=== PATIENT | female | born 1960 | race Caucasian/White ===

== ENCOUNTER 2025-05-30 13:03 | Emergency (ER) | payer MEDICARE ==
[2025-05-30 13:41] LABS: #Basophils 0.04 10x3/uL (0.0-0.2); #Eosinophils 0.10 10x3/uL (0.0-0.5); #Monocytes 0.35 10x3/uL (0.0-1.1); #Neutrophils 2.84 10x3/uL (1.5-8.4); %Basophils 0.8 % (0.0-2.0); %Eosinophils 1.9 % (0.0-6.0); %Lymphocytes 36.6 % (18.0-47.0); %Monocytes 6.6 % (0.0-10.0); %Neutrophils 53.9 % (40.0-75.0); Hematocrit 39.9 % (34.9-44.5); Hemoglobin 13.1 g/dL (12.0-15.5); Mean Corpuscular Hemoglobin 28.5 pg (27.0-33.0); Mean Corpuscular Volume 86.9 fL (81.6-98.3); Platelet Count 244 10x3/uL (150-450); Red Blood Cell (RBC) Count 4.59 10x6/uL (3.90-5.03); White Blood Cell (WBC) Count 5.27 10x3/uL (3.5-10.5)
[2025-05-30 13:54] LABS: ALT (SGPT) Less than 7 U/L (Less than 34); AST (SGOT) 14 U/L (11-34); Albumin 3.8 g/dL (3.1-4.5); Alkaline Phosphatase 65 U/L (40-110); Anion Gap 11 mmol/L (10-20); BUN (Urea Nitrogen) 12 mg/dL (9.8-20.1); Bilirubin, Total 0.4 mg/dL (0.3-1.2); Calc. Creatinine Clearance 0 mL/min (70-130); Calcium 9.3 mg/dL (7.8-10.44); Carbon Dioxide 29 mmol/L (23-31); Chloride 106 mmol/L (98-107); Globulin 3.1 g/dL (2.4-3.5); Glucose 95 mg/dL (80-115); Potassium 4.3 mmol/L (3.5-5.1); Sodium 142 mmol/L (136-145)
[2025-05-30] MEDS ORDERED: Metoclopramide HCl 10 MG (2 mL) VIAL ONE (14:49)
[2025-05-30] MEDS ORDERED: Acetaminophen 500 MG TAB ONE ×2 (14:49→15:00)
[2025-05-30] MEDS ORDERED: diphenhydrAMINE 50 MG/ML VIAL ONE (14:49)
[2025-05-30] MEDS ORDERED: Ketorolac Tromethamine 30 MG (1 mL) VIAL ONE (14:52)
[2025-05-30 17:58] LABS: Troponin I Less than 0.010 ng/mL (< 0.028)
== END 2025-05-30 18:19 | disposition home or self-care (01) ==
LOC: CSHERS 13:03
DX: J02.9 Acute pharyngitis, unspecified (principal); H92.02 Otalgia, left ear
CPT/HCPCS: 71045; 80053; 84484; 85025; 87081; 87428; 87430; 93005; J1100; J1200; J1885; J2765; 36415; 96374; 96375